=== PATIENT | female | born 1955 | race Caucasian/White ===

== ENCOUNTER 2018-01-21 14:31 | Emergency (ER) | payer OTHER ==
[2018-01-21 14:39] VITALS: TEMP 97.5
--- NOTE | 2018-01-21 15:26 | EDPHY ---
H & P Stated Complaint: Referred to ED for abnormal CT Time Seen by Provider: 01/21/18 15:21 HPI/ROS: CHIEF COMPLAINT: Abnormal CT scan HISTORY OF PRESENT ILLNESS: The patient is referred to the emergency department for evaluation of abnormal CT scan. The patient was evaluated by her primary care provider who performed a chest x-ray for his several week history of cough and dyspnea. This demonstrated a moderate right pleural effusion. This was followed up with a CT scan of the chest which demonstrated metastatic disease with involving the liver and lung. The patient tells me that she has not had regular health care. She has not had a history of colonoscopy. The patient did have a remote history of mammograms but has not had this performed in some time. The patient is an ex smoker who quit in her 40s. The patient had been feeling relatively well prior to the development of her respiratory symptoms. REVIEW OF SYSTEMS: A comprehensive 10 point review of systems is otherwise negative aside from elements mentioned in the history of present illness. Source: Patient - Personal History Current Tetanus/Diphtheria Vaccine: Yes Current Tetanus Diphtheria and Acellular Pertussis (TDAP): Yes - Medical/Surgical History Hx Asthma: No Hx Chronic Respiratory Disease: No Hx Diabetes: No Hx Cardiac Disease: No Hx Renal Disease: No Hx Cirrhosis: No Hx Alcoholism: No Hx HIV/AIDS: No Hx Splenectomy or Spleen Trauma: No Other PMH: PMH: denies. PSH: TONSILS - Social History Smoking Status: Former smoker - Physical Exam Exam: General Appearance: Alert, no distress Eyes: Pupils equal and round no pallor or injection ENT, Mouth: Mucous membranes moist Respiratory: Decreased breath sounds right lung base Cardiovascular: Regular rate and rhythm Gastrointestinal: Abdomen is soft and nontender, no masses, bowel sounds normal Neurological: A&O, normal motor function, normal sensory exam, normal cranial nerves Skin: Warm and dry, no rashes Musculoskeletal: Neck is supple nontender Extremities: symmetrical, full range of motion Constitutional: Initial Vital Signs Temperature (C) 36.4 C 01/21/18 14:37 Heart Rate 88 01/21/18 14:37 Respiratory Rate 20 01/21/18 14:37 Blood Pressure 105/68 01/21/18 14:37 O2 Sat (%) 93 01/21/18 14:37 O2 Delivery Mode Room Air Allergies/Adverse Reactions: aspirin Allergy (Verified 01/21/18 14:37) Home Medications: Medication Instructions Recorded NK [No Known Home Meds] 08/19/15 Medical Decision Making - Diagnostics Imaging Results: Imaging Impressions Chest CT 01/21/18 18:00 Impression: 1. Hepatic metastasis. 2. Right hilar/mediastinal and lower lobe mass versus adenopathy representing bronchogenic carcinoma or metastatic disease. 3. Moderate complex right pleural effusion with right lower lobe and right middle lobe atelectasis. 4. Right upper lobe pneumonitis probably postobstructive. 5. Recommend CT of the chest, abdomen and pelvis with contrast enhancement for further evaluation. Findings and recommendations given to Joanna Hodge PA-C at 13:32 hour, 2017. Final report concurs with initial preliminary interpretation. A test result has been communicated to a licensed care provider and documented in the [employer] Critical Result system on 01/21/2018 13:32, Message ID [id number]. ED Course/Re-evaluation: The patient presents to the ED with newly diagnosed metastatic disease. The patient is not hypoxemic and is in no acute distress. I reviewed the patient's noncontrast CT scan with the on-call oncologist Dr. Owusu. At this point time the patient does not have an oxygen requirement and outpatient workup can quickly being sure through Oncology. A CT scan of the chest abdomen pelvis with IV contrast was ordered at the direction of the oncologist. Dr. Owsuu has scheduled the patient to be seen in follow-up tomorrow. The patient will be discharged from the emergency department after her CT scan. Differential Diagnosis: Differential diagnosis considered includes pleural effusion, pneumonia, lung cancer, hypoxemia - Data Points Laboratory Results: Laboratory Results 01/21/18 15:40 01/21/18 15:40 01/21/18 01/21/18 01/21/18 15:40 15:40 15:40 WBC 5.91 10^3/uL 10^3/uL (3.80-9.50) RBC 5.02 10^6/uL 10^6/uL (4.18-5.33) Hgb 15.9 g/dL g/dL (12.6-16.3) Hct 46.2 % % (38.0-47.0) MCV 92.0 fL fL (81.5-99.8) MCH 31.7 pg pg (27.9-34.1) MCHC 34.4 g/dL g/dL (32.4-36.7) RDW 12.3 % % (11.5-15.2) Plt Count 412 10^3/uL H 10^3/uL (150-400) MPV 9.4 fL fL (8.7-11.7) Neut % (Auto) 77.0 % H % (39.3-74.2) Lymph % (Auto) 13.2 % L % (15.0-45.0) Blair % (Auto) 8.1 % % (4.5-13.0) Eos % (Auto) 0.5 % L % (0.6-7.6) Baso % (Auto) 0.7 % % (0.3-1.7) Nucleat RBC Rel Count 0.0 % % (0.0-0.2) Absolute Neuts (auto) 4.55 10^3/uL 10^3/uL (1.70-6.50) Absolute Lymphs (auto) 0.78 10^3/uL L 10^3/uL (1.00-3.00) Absolute Monos (auto) 0.48 10^3/uL 10^3/uL (0.30-0.80) Absolute Eos (auto) 0.03 10^3/uL 10^3/uL (0.03-0.40) Absolute Basos (auto) 0.04 10^3/uL 10^3/uL (0.02-0.10) Absolute Nucleated RBC 0.00 10^3/uL 10^3/uL (0-0.01) Immature Gran % 0.5 % % (0.0-1.1) Immature Gran # 0.03 10^3/uL 10^3/uL (0.00-0.10) PT 13.6 SEC SEC (12.0-15.0) INR 1.02 (0.83-1.16) APTT 26.4 SEC SEC (23.0-38.0) Sodium 140 mEq/L mEq/L (135-145) Potassium 4.3 mEq/L mEq/L (3.5-5.2) Chloride 101 mEq/L mEq/L (97-110) Carbon Dioxide 28 mEq/l mEq/l (22-31) Anion Gap 11 mEq/L mEq/L (8-16) BUN 10 mg/dL mg/dL (7-23) Creatinine 0.6 mg/dL mg/dL (0.6-1.0) Estimated GFR > 60 Glucose 95 mg/dL mg/dL (70-100) Calcium 9.4 mg/dL mg/dL (8.5-10.4) Medications Given: Discontinued Medications Sodium Chloride (Ns) 1,000 mls @ 0 mls/hr IV EDNOW ONE; Wide Open PRN Reason: Protocol Stop: 01/21/18 15:28 Last Admin: 01/21/18 15:47 Dose: 1,000 mls Departure - Departure Disposition: Home, Routine, Self-Care Clinical Impression: Pleural effusion, Liver mass Condition: Good Instructions: Pleural Effusion (ED) Additional Instructions: 1. Please follow up with Dr. Owusu tomorrow to review the results of your CT scan and discuss the next options which likely include biopsy. 2. Return to the ED for severe shortness of breath or other concerns. Referrals: Joanna Hodge PA [Primary Care Provider] - As per Instructions
[2018-01-21] MEDS ORDERED: NS 1,000 ML IV ONE (15:27)
[2018-01-21 16:09] LABS: PLATELET COUNT 412 10^3/uL (150-400)
[2018-01-21 16:26] LABS: INR 1.02 (0.83-1.16); PROTIME(PATIENT) 13.6 SEC (12.0-15.0)
[2018-01-21] MEDS ORDERED: IOPAMIDOL (ISOVUE-300) 100 ML BTL ONE (16:46)
[2018-01-21 17:07] VITALS: BP 135/67; RESP 16
[2018-01-21 17:08] VITALS: PULSE 82; O2SAT 90
== END 2018-01-21 17:10 | disposition home or self-care (01) ==
LOC: EDSTATUS 18:00
DX: J90 Pleural effusion, not elsewhere classified (principal); R16.0 Hepatomegaly, not elsewhere classified; E86.9 Volume depletion, unspecified; Z87.891 Personal history of nicotine dependence
CPT/HCPCS: Q9967

== ENCOUNTER → 2018-01-21 | Outpatient (CLI) | payer OTHER | LOC: FIMAGING 10:22 | PROVIDERS: ATTEND Physician Assistant | DX: J98.4 Other disorders of lung (principal) ==

== ENCOUNTER 2018-01-31 07:00 | Outpatient (CLI) | payer OTHER ==
[2018-01-31 07:58] VITALS: RESP 12
[2018-01-31] MEDS ORDERED: LIDOCAINE 1% 300 MG/30 ML SDV ONE (08:06)
--- NOTE | 2018-01-31 08:48 | PDPROPOC ---
Sedation Plan of Care Sedation Plan of Care: vital signs stable, mental status noted, patient educated of risks, benefits, alternatives, patient can tolerate sedation ASA Classification: ASA 2 Planned drugs: fentanyl, midazolam Mallampati Score: Class 1 Mallampati Reference Image: Patient passed 3-3-2 rule?: Yes
[2018-01-31] MEDS ORDERED: MIDAZOLAM 2 MG/2 ML VIAL IVP PRN (08:50)
[2018-01-31] MEDS ORDERED: NALOXONE HCL 0.4 MG/ML INJ IVP PRN (08:50)
[2018-01-31] MEDS ORDERED: FLUMAZENIL 0.5 MG/5 ML MDV IVP PRN (08:50)
[2018-01-31] MEDS ORDERED: fentaNYL 100 MCG/2 ML INJ IVP PRN (08:50)
[2018-01-31] MEDS ORDERED: NS 1,000 ML IV SCH (09:00)
--- NOTE | 2018-01-31 10:02 | PDRADPN ---
Radiology Procedure Note Date of Procedure: 01/31/18 Radiologist: Juan Miguel Ellison Tool Designer Apprentice(s): Fortino Neves US Tech Anesthesiologist: richard Anesthesia: IV Sedation (Versed and Fentanyl) Pre-op Diagnosis: Liver masses. Suspected metastasis. Post-op Diagnosis: Liver masses. Suspected metastasis. Indication: Liver masses. Suspected metastasis. Procedure: US Guided liver biopsy 18 ga needle Finding(s): Numerous liver masses. Dominant in left lobe targeted. Inf/Abcess present in the surg proc area at time of surgery?: No Depth: Organ Space (Liver) EBL: Minimal Complications: No complications. Drains: Other (No drains)
--- NOTE | 2018-01-31 10:06 | PDGENHP ---
History & Physical Chief Complaint: Liver masses. Suspected metastasis. History of Present Illness: Liver masses. Suspected metastasis. Pertinent Past, Social, Family History: Former smoker Cardiorespiratory Assessment: Clear lungs. RRR.
[2018-01-31 10:35] VITALS: BP 101/69; PULSE 84; O2SAT 92
[2018-01-31] MEDS ORDERED: oxyCODONE IR 5 MG TAB PO PRN (10:44)
[2018-01-31] MEDS ORDERED: ONDANSETRON 4 MG/2 ML VIAL IVP PRN (10:44)
== END 2018-01-31 13:25 | disposition home or self-care (01) ==
LOC: FIMAGING 07:00
PROVIDERS: ATTEND Internal Medicine Hematology & Oncology
PROC: 0FB03ZX Excision of Liver, Percutaneous Approach, Diagnostic (ICD-10-PCS; principal; 2018-01-31 10:07)
DX: C78.7 Secondary malignant neoplasm of liver and intrahepatic bile duct (principal)
CPT/HCPCS: J2250; J3010

== ENCOUNTER → 2018-02-14 | Outpatient (CLI) | payer OTHER ==
[~2018-02-14] MED LIST: GADOBUTROL 10 ML VIAL IVP ONE
== END ==
LOC: FIMAGING 18:26
PROVIDERS: ATTEND Internal Medicine Hematology & Oncology
DX: C79.31 Secondary malignant neoplasm of brain (principal); C22.9 Malignant neoplasm of liver, not specified as primary or secondary; C34.90 Malignant neoplasm of unspecified part of unspecified bronchus or lung
CPT/HCPCS: A9585

== ENCOUNTER 2018-03-01 05:49 | Day surgery (SDC) | payer OTHER ==
--- NOTE | 2018-02-27 15:53 | GHP ---
[f rep st] PREOP HISTORY AND PHYSICAL DATE OF ADMISSION: 03/01/2018 DATE OF SURGERY: 03/01/2018. CHIEF COMPLAINT: Right lower lobe lung cancer. 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 She completed her first round of chemotherapy with etoposide and carboplatin. She had difficulty with venous access and is pursuing a port for IV access. Her oncologist is Dr. Huggins. She has her next chemo scheduled for 1 week. She is very anxious. PAST MEDICAL HISTORY: Right lower lobe lung cancer, as mentioned above. Otherwise none. PAST SURGICAL HISTORY: Tonsillectomy in the 1970s. ALLERGIES: Aspirin. FAMILY HISTORY: Significant for brother with glioblastoma, sister with COPD, father with heart attack, and mother and sister with stroke. SOCIAL HISTORY: She is . She is a retired psychologist. She is a former smoker. She denies alcohol or recreational drug use. REVIEW OF SYSTEMS: Significant for anxiety. Otherwise, a 10-point review of systems is negative aside from HPI. PHYSICAL EXAMINATION: GENERAL: Well-developed, well-nourished woman, in no acute distress. HEENT: Normocephalic, atraumatic. No hearing deficits. Pupils equal and round. No scleral icterus. Mucous membranes moist. NECK: Trachea midline. RESPIRATORY: No increased work of breathing. Clear to auscultation bilaterally. CARDIOVASCULAR: Regular rate and rhythm. No peripheral edema. SKIN: No rash. Warm and dry. PSYCH: Mood and affect normal. NEURO: Grossly intact. IMPRESSION AND PLAN: A 62-year-old woman with metastatic right lower lobe lung cancer, who will require a port for intravenous access for chemotherapy. We discussed benefit of port placement including easier access for chemotherapy. We discussed risks, including but not limited to, stroke, heart attack, blood clots or . We discussed risk of infection, bleeding, pneumothorax, or need for device removal. She understands if the port becomes infected that it would need to be removed. This will be an outpatient procedure. She will call with any worsening symptoms, questions, or concerns. I saw and examined the patient. Moses Hughes PA-C acted as scribe. /[id number]/MODL MTDD
[2018-03-01] MEDS ORDERED: LR 1,000 ML IV ONE (06:06)
[2018-03-01] MEDS ORDERED: ceFAZolin 2 GM/SWFI 2 GM/20 ML SYR IVP ONE (06:06)
--- NOTE | 2018-03-01 06:52 | PDANEPAE ---
ANE History of Present Illness port placement ANE Past Medical History - Cardiovascular History Hx Hypertension: No Hx Arrhythmias: No Hx Chest Pain: No Hx Coronary Artery / Peripheral Vascular Disease: No Hx CHF / Valvular Disease: No Hx Palpitations: No - Pulmonary History Hx COPD: No Hx Asthma/Reactive Airway Disease: No Hx Recent Upper Respiratory Infection: No Hx Oxygen in Use at Home: No Hx Sleep Apnea: Yes Sleep Apnea Screening Result - Last Documented: Negative Pulmonary History Comment: increasing dyspnea and cough over the last few weeks. current lung ca. pleural effusion noted on CT - Neurologic History Hx Cerebrovascular Accident: No Hx Seizures: No Hx Dementia: No - Endocrine History Hx Diabetes: No - Renal History Hx Renal Disorders: No - Liver History Hx Hepatic Disorders: Yes Hepatic History Comment: mets to liver - Neurological & Psychiatric Hx Hx Neurological and Psychiatric Disorders: Yes Neurological / Psychiatric History Comment: anxiety - Cancer History Hx Cancer: Yes Cancer History Comment: current small cell lung ca with mets to liver. currently doing chemo- last chemo was a few weeks ago- next one to start - Congenital Disorder History Hx Congenital Disorders: No - GI History Hx Gastrointestinal Disorders: No - Other Health History Other Health History: none - Chronic Pain History Chronic Pain: No - Surgical History Prior Surgeries: 01/31/18 liver bx. Tonsillectomy-16 years old ANE Review of Systems Review of Systems: cough - Exercise capacity METS (RN): 4 METS ANE Patient History - Allergies Allergies/Adverse Reactions: aspirin Allergy (Verified 02/28/18 16:14) GI upset - Home Medications Home medications: home medication list seen and reviewed Home Medications: LORAZEPAM PRN 01/29/18 [Last Taken 02/28/18] - NPO status NPO Status: no food or drink >8 hours NPO Since - Liquids (Date): 02/28/18 NPO Since - Liquids (Time): 20:30 NPO Since - Solids (Date): 02/28/18 NPO Since - Solids (Time): 19:00 - Anes Hx Anes Hx: no prior problems - Smoking Hx Smoking Status: Former smoker - Family Anes Hx Family Anes Hx: none Family Hx Anesthesia Complications: None ANE Labs/Vital Signs - Vital Signs Blood Pressure: 100/55 Heart Rate: 84 Respiratory Rate: 16 O2 Sat (%): 96 Height: 160.09 cm Weight: 61.6 kg ANE Physical Exam - [facility]: [facility] Mouth exam: normal dental/mouth exam - Pulmonary Pulmonary: rhonchi - Cardiovascular Cardiovascular: regular rate and rhythym - ASA Status ASA Status: III ANE Anesthesia Plan Total IV Anesthesia: Yes
--- NOTE | 2018-03-01 06:55 | PDHPUP ---
History & Physical Update H&P update statement: This history and physical update is based on an assessment of the patient which was completed after admission or registration (within 24 hours), but prior to the surgery/procedure. H&P update: H&P reviewed & patient examined, no change in patient's condition since H&P completed
[2018-03-01] MEDS ORDERED: BUPIVACAINE 0.5% 30 ML SDV ONE (07:02)
[2018-03-01] MEDS ORDERED: MIDAZOLAM 2 MG/2 ML VIAL IVP ONE (07:03)
[2018-03-01] MEDS ORDERED: MIDAZOLAM 2 MG/2 ML VIAL ONE (07:04)
[2018-03-01] MEDS ORDERED: PROPOFOL/EMULSION 500 MG/50 ML BOTTLE IV ONE (07:12)
[2018-03-01] MEDS ORDERED: LIDOCAINE 1% 300 MG/30 ML SDV ONE (07:25)
[2018-03-01] MEDS ORDERED: ACETAMINOPHEN 500 MG TAB PO PRN (07:48)
[2018-03-01] MEDS ORDERED: NALOXONE HCL 0.4 MG/ML INJ IVP PRN (07:48)
[2018-03-01] MEDS ORDERED: HYDROCODONE/APAP 5/325 TAB PO PRN (07:48)
[2018-03-01] MEDS ORDERED: oxyCODONE IR 5 MG TAB PO PRN (07:48)
[2018-03-01] MEDS ORDERED: ALBUTEROL 3 ML DEYVIAL IH PRN (07:48)
[2018-03-01] MEDS ORDERED: fentaNYL 100 MCG/2 ML INJ IVP PRN (07:48)
[2018-03-01] MEDS ORDERED: MEPERIDINE 25 MG/ML SYR IVP PRN (07:48)
[2018-03-01] MEDS ORDERED: ONDANSETRON 4 MG/2 ML VIAL IVP PRN (07:48)
[2018-03-01] MEDS ORDERED: HYDROmorphONE/DILAUDID 1 MG/ML INJ IVP PRN (07:48)
[2018-03-01] MEDS ORDERED: DEXAMETHASONE 4 MG/ML VIAL IVP PRN (07:48)
--- NOTE | 2018-03-01 07:50 | POSTANESTH ---
Post Anesthetic Evaluation Cardiovascular Status: Normal, Stable, Similar to Pre-Op Cond Respiratory Status: Similar to Pre-op Cond. Level of Consciousness/Mental Status: Can Participate in Eval, Mildly Sleepy, Arousable Pain Control: Adequate, Prn Tx Ordered Nausea/Vomiting Control: Adequate, Prn Tx Ordered Complications Possibly Related to Anesthesia: None Noted
[2018-03-01] MEDS ORDERED: LIDOCAINE 2% 100 MG/5 ML SYR ONE (07:59)
--- NOTE | 2018-03-01 08:02 | POSTOPPROG ---
Post Op Note Date of Operation: 03/01/18 Surgeon: Reena Castillo Anesthesiologist: steven Anesthesia: IV Sedation Pre-op Diagnosis: lung cancer Post-op Diagnosis: same Indication: 62 yo with lung cancer Procedure: L IJ port Findings: Tip SVC Inf/Abcess present in the surg proc area at time of surgery?: No EBL: Minimal Specimen(s): none
--- NOTE | 2018-03-01 08:20 | GOP ---
[f rep st] OPERATIVE REPORT DATE OF OPERATION: 03/01/2018 SURGEON: Reena Castillo MD ANESTHESIA: Dr. Taj Cartagena/monitored anesthesia care with IV sedation. PREOPERATIVE DIAGNOSIS: Right lung cancer. POSTOPERATIVE DIAGNOSIS: Right lung cancer. PROCEDURE PERFORMED: Left internal jugular PowerPort placement. FINDINGS: tip SVC SPECIMENS: None. ESTIMATED BLOOD LOSS: 5 cc. INDICATIONS: The patient is a 62-year-old woman with lung cancer. She requires a port for chemotherapy. DESCRIPTION OF PROCEDURE: Patient was brought into the operating room, placed supine on the table, and IV sedation was performed. Her bilateral neck and chest were prepped and draped in the usual sterile fashion. I infiltrated her chest and neck with 10 cc of 0.5% Marcaine mixed with 1% lidocaine. Using ultrasound guidance, identified the internal jugular vein which was compressible. I accessed it with a large bore needle with dark return of blood flow. I threaded the guidewire and removed the needle. Placement was confirmed with fluoroscopy. I created a pocket to accommodate the port in the left chest. I tunneled the port up to the insertion site. I measured the catheter under fluoroscopy and cut it to size. Using the Seldinger technique, I placed a dilator and sheath over the wire. I removed the wire and the dilator. I threaded the catheter through the sheath. I peeled away the sheath. Placement was confirmed with fluoroscopy. The port withdrew blood easily and was flushed with heparin. The pocket was closed with 3-0 Vicryl followed by 4-0 Monocryl. Dermabond applied. She was awakened in the operating room, transferred to PACU in stable condition. /[id number]/MODL MTDD
[2018-03-01 09:58] VITALS: BP 89/59
== END 2018-03-01 09:50 | disposition home or self-care (01) ==
LOC: FSGY 05:49
PROVIDERS: ATTEND Surgery
DX: C34.31 Malignant neoplasm of lower lobe, right bronchus or lung (principal); C78.7 Secondary malignant neoplasm of liver and intrahepatic bile duct
CPT/HCPCS: C1788; J0690; J1642; J2001; J2250; J2704

== ENCOUNTER → 2018-03-24 | Outpatient (CLI) | payer OTHER | LOC: FIMAGING 14:30 | PROVIDERS: ATTEND Physician Assistant | DX: C34.31 Malignant neoplasm of lower lobe, right bronchus or lung (principal); Z85.841 Personal history of malignant neoplasm of brain | CPT/HCPCS: A9585; J1642 ==

== ENCOUNTER → 2018-07-09 | Outpatient (CLI) | payer OTHER | DX: C34.90 Malignant neoplasm of unspecified part of unspecified bronchus or lung (principal); Z85.841 Personal history of malignant neoplasm of brain | CPT/HCPCS: A9585; J1642 ==

== ENCOUNTER → 2018-10-07 | Outpatient (CLI) | payer OTHER | LOC: FIMAGING 10:03 | PROVIDERS: ATTEND Internal Medicine Hematology & Oncology | DX: C34.31 Malignant neoplasm of lower lobe, right bronchus or lung (principal) | CPT/HCPCS: A9585; J1642 ==

== ENCOUNTER → 2019-02-05 | Outpatient (CLI) | payer OTHER | LOC: FIMAGING 17:01 | PROVIDERS: ATTEND Internal Medicine Hematology & Oncology | DX: C34.31 Malignant neoplasm of lower lobe, right bronchus or lung (principal); C79.31 Secondary malignant neoplasm of brain | CPT/HCPCS: 70553; A9585 ==

== ENCOUNTER → 2019-05-09 | Outpatient (CLI) | payer OTHER | LOC: FIMAGING 10:21 ==